=== PATIENT | female | born 1985 | race Caucasian/White ===

== ENCOUNTER → 2017-02-08 | Outpatient (CLI) | payer BC ==
[~2017-02-08] MED LIST: MTR600X PO; PRENTAB26 PO
== END | disposition home or self-care (01) ==
LOC: C.PAPS 16:54
PROVIDERS: ATTEND Physician Assistant
DX: Z01.419 Encounter for gynecological examination (general) (routine) without abnormal findings (principal)

== ENCOUNTER → 2017-07-12 | Outpatient (CLI) | payer OTHER | END | disposition home or self-care (01) | LOC: C.LABSPEC 17:34 | PROVIDERS: ATTEND Obstetrics & Gynecology | DX: Z11.3 Encounter for screening for infections with a predominantly sexual mode of transmission (principal) ==

== ENCOUNTER 2019-03-25 07:51 | Inpatient (IN) ==
[2019-03-25] MEDS ORDERED: OXYTOCIN 30 UNITS/500 ML BAG IV PRN ×2 (08:05→14:42)
[2019-03-25 08:29] LABS: Hematocrit (blood only) 36.1 % (37-47); Hemoglobin 12.3 g/dL (12.0-16.0); Mean Corpuscular Hemoglobin 31.2 pg (25-34); Mean Corpuscular Volume 91.6 fL (80-100); Platelet Count 158 K/uL (130-400); RDW Coefficient of Variation 13.7 % (11.5-14.5); RDW Standard Deviation 45.2 fL (36.4-46.3); Red Blood Count 3.94 M/uL (4.2-5.4); White Blood Count 8.86 K/uL (4.8-10.8)
[2019-03-25 08:40] LABS: Mean Corpuscular Hgb Conc 34.1 g/dL (32-36)
[2019-03-25] MEDS: LACTATED RINGER'S 1,000 ML IV PRN ×2 (08:48→11:30)
--- NOTE | 2019-03-25 09:04 | History & Physical Report ---
Date of Service March 25, 2019 Assessment & Plan (1) Encounter for induction of labor: Patient presents for IOL because of prior precipitous delivery. Plan is to do AROM after epidural has been placed anticipate vaginal Present on Admission?: Yes History of Present Illness Primary Care Provider: NO PCP Patient is a 33 yo white female EDC 04/01/19 who presents at 39 weeks for IOL because of history of precipitous labor & delivery last . She has had some cramping but no real contractions yet. no bloody show. no SROM. GBS (-) Blood Type A(+). Baby has been active. Allergies Allergy/AdvReac Type Severity Reaction Status Date / Time No Known Drug Allergies Allergy Verified 03/24/19 15:14 Home Medications Home Medications Medication Instructions Recorded Confirmed Type PNV cmb#95-ferrous fumarate-FA 1 tab PO DAILY 08/08/18 03/24/19 History [] Saccharomyces boulardii 250 mg PO cap 12/30/18 03/24/19 History capsule aspirin 81 mg tablet,delayed 81 mg PO DAILY 12/30/18 03/24/19 History release ferrous sulfate PO 03/06/19 03/24/19 History collagen MS 03/13/19 03/24/19 History Patient History Medical History with one fetus (Resolved 10/01/13) with prior complicated (Resolved 10/01/13) Rapid first stage of labor (Resolved 10/01/13) History of varicella Hx of preeclampsia, prior , currently No chronic diseases present No significant past surgical history Surgical History Breast enlargement Status post colposcopy Family History Aunt Breast cancer Grandmother (Maternal) Breast cancer Other No significant family history Social History marital status: Single Current Living Situation: Alone current occupational status: employed Feels Safe at Home: Yes Smoking Status: Current every day smoker Review of Systems All systems reviewed & are unremarkable except as noted in HPI & below Physical Exam Constitutional: WD/WN, vitals as above Respiratory: normal respiratory effort, lungs clear to auscultation Cardiovascular: RRR, no murmur, no edema Gastrointestinal (Abdomen): normal bowel sounds, soft, nontender, no hepatosplenomegaly Psychiatric: A+Ox3, euthymic affect Genitourinary: OB Exam Abdomen: + vertex, + estimated weight (7-8 pounds) and + irregular contractions Manual OB Exam: + cervical dilation 4 cm, + cervical effacement 80% and + station -2 OB Exam Monitor Tracing: + external FHT monitor used, + external uterine monitor used, + category I and + normal FHT variability Results & Data Vital Signs (Past 12 Hours) Vital Signs Pulse BP 03/25/19 07:59 89 127/70
[2019-03-25] MEDS ORDERED: fentaNYL citrate 100 MCG/2 ML VIAL ONE (09:07)
[2019-03-25] MEDS ORDERED: fentaNYL 2MCG/ML ROPIV 1.25MG/ML 100 ML BAG EPI ONE (09:08)
[2019-03-25] MEDS ORDERED: BUPIVACAINE 0.25% 30 ML VIAL ONE (09:08)
[2019-03-25] MEDS ORDERED: ePHEDrine sulfate 50 MG/ML AMP ONE (09:08)
--- NOTE | 2019-03-25 09:16 | Anesthesiology Consultation ---
Date of Service March 25, 2019 Assessment & Plan ASA ASA2 Proposed Anesthesia Anesthesia Type: Labor Epidural Risk / Benefits Reviewed With: PT / POA / Parent / Guardian, Accepts Plan and Informed Consent Obtained History Allergies Allergy/AdvReac Type Severity Reaction Status Date / Time No Known Drug Allergies Allergy Verified 03/24/19 15:14 Medications Home Medications Medication Instructions Recorded Confirmed Last Taken PNV cmb#95-ferrous fumarate-FA 1 tab PO DAILY 08/08/18 03/24/19 Unknown [] Saccharomyces boulardii 250 mg PO cap 12/30/18 03/24/19 Unknown capsule aspirin 81 mg tablet,delayed 81 mg PO DAILY 12/30/18 03/24/19 Unknown release ferrous sulfate PO 03/06/19 03/24/19 Unknown collagen MS 03/13/19 03/24/19 Unknown NPO Date Last Intake of Fluids: 03/25/19 Time Last Intake of Fluids: 00:00 Date Last Intake of Solids: 03/25/19 Time Last Intake of Solids: 00:00 Past Medical History Medical History with one fetus (Resolved 10/01/13) with prior complicated (Resolved 10/01/13) Rapid first stage of labor (Resolved 10/01/13) History of varicella Hx of preeclampsia, prior , currently No chronic diseases present No significant past surgical history Exercise / Class Metabolic Activity II 4-5 Yardwork/Stairs/Walk up hill Past Family History Family History Aunt Breast cancer Grandmother (Maternal) Breast cancer Other No significant family history Past Surgical History Surgical History Breast enlargement Status post colposcopy Past Anesthesia History No Hx of Anesthesia Complications and No Family Hx of Anesthesia Complications History of PONV No Hx of PONV and No Hx of Motion Sickness Social History Smoking Status: Current every day smoker Physical Exam Vital Signs Last Vital Signs Pulse 91 H 03/25/19 09:59 BP 112/69 03/25/19 09:56 Pulse Ox 94 03/25/19 09:59 ENMT Mouth: no TMJ abnormality and no dentition abnormality Thyromental Distance: > or= 3.5 Finger Breadths Mallampati Class: II Neck neck extension not limited Respiratory normal respiratory effort; no respiratory distress Auscultation: lungs clear to auscultation bilaterally Cardiovascular Rate/Rhythm: regular rate and regular rhythm Neurologic moves all extremities Psychiatric Orientation: alert and oriented x 3 Testing Laboratory Results 03/25/19 08:12
[2019-03-25] MEDS ORDERED: OXYCODONE/ACETAMINOPHEN 5mg/325mg TAB PO PRN (14:42)
[2019-03-25] MEDS ORDERED: ACETAMINOPHEN 325 MG TAB PO PRN (14:42)
[2019-03-25] MEDS ORDERED: BENZOCAINE 20% AER SPR 82.5 GM CAN EXT PRN (14:42)
[2019-03-25] MEDS ORDERED: HYDROCORTISONE ACETATE 25 MG SUPP PR PRN (14:42)
[2019-03-25] MEDS ORDERED: SUPERCREAM 0.870% 15 GM JAR EXT PRN (14:42)
[2019-03-25] MEDS ORDERED: DIPHTHERIA/TETANUS/PERTUSSIS 0.5 ML SYR/VIAL IM ONE (14:42)
[2019-03-25] MEDS ORDERED: bisacodyL 10 MG SUPP PR PRN (14:42)
--- NOTE | 2019-03-25 15:13 | Anesthesiology Progress Note ---
Date of Service March 25, 2019 Anesthesia Post Procedure Vital Signs Vital Signs: Temp Pulse Resp BP Pulse Ox 03/25/19 15:03 80 113/78 03/25/19 14:55 96 H 108/71 03/25/19 14:34 85 117/62 03/25/19 14:24 103 H 78 L 03/25/19 14:20 95 H 115/60 03/25/19 14:19 106 H 97 03/25/19 14:14 77 97 03/25/19 14:09 80 98 03/25/19 14:06 78 94 03/25/19 14:04 93 H 97 03/25/19 14:03 87 113/63 03/25/19 13:59 86 96 03/25/19 13:54 81 96 03/25/19 13:49 84 117/59 L 97 03/25/19 13:44 84 96 03/25/19 13:39 78 96 03/25/19 13:35 79 93 03/25/19 13:34 96 H 96 03/25/19 13:29 87 96 03/25/19 13:24 79 93 03/25/19 13:23 82 94 03/25/19 13:19 83 114/61 95 03/25/19 13:18 81 94 03/25/19 13:14 78 95 03/25/19 13:10 81 94 03/25/19 13:09 85 95 03/25/19 13:04 78 93 03/25/19 13:03 87 116/60 03/25/19 12:59 77 95 03/25/19 12:54 80 96 03/25/19 12:49 80 121/57 L 96 03/25/19 12:44 86 96 03/25/19 12:40 82 94 03/25/19 12:39 87 96 03/25/19 12:35 74 112/70 03/25/19 12:34 83 96 03/25/19 12:29 80 97 03/25/19 12:24 93 H 97 03/25/19 12:23 80 94 03/25/19 12:20 81 113/69 03/25/19 12:19 79 97 03/25/19 12:14 83 97 03/25/19 12:09 80 94 03/25/19 12:07 81 94 03/25/19 12:04 83 120/65 95 03/25/19 11:59 77 94 03/25/19 11:54 85 95 03/25/19 11:49 78 95 03/25/19 11:48 91 H 105/59 L 03/25/19 11:44 95 H 95 03/25/19 11:43 83 93 03/25/19 11:39 85 97 03/25/19 11:36 86 110/68 03/25/19 11:34 79 95 03/25/19 11:29 84 95 03/25/19 11:24 91 H 94 03/25/19 11:23 93 H 94 03/25/19 11:20 36.7 C 72 18 109/61 03/25/19 11:19 80 94 03/25/19 11:15 87 94 03/25/19 11:14 77 94 03/25/19 11:10 80 94 03/25/19 11:09 81 96 03/25/19 11:05 84 94 03/25/19 11:04 83 115/57 L 94 03/25/19 10:59 95 H 95 03/25/19 10:54 86 94 03/25/19 10:53 84 94 03/25/19 10:50 72 100/64 03/25/19 10:49 80 95 03/25/19 10:44 84 94 03/25/19 10:39 82 95 03/25/19 10:38 80 94 03/25/19 10:34 87 95 03/25/19 10:33 85 113/62 03/25/19 10:31 83 94 03/25/19 10:30 36.8 C 20 03/25/19 10:29 85 96 03/25/19 10:24 84 96 03/25/19 10:22 84 94 03/25/19 10:19 81 96 03/25/19 10:18 86 112/77 03/25/19 10:15 86 94 03/25/19 10:14 85 94 03/25/19 10:09 80 95 03/25/19 10:04 86 93 03/25/19 10:02 93 H 117/58 L 03/25/19 10:01 84 94 03/25/19 09:59 91 H 94 03/25/19 09:56 84 112/69 03/25/19 09:55 87 94 03/25/19 09:54 83 114/65 95 03/25/19 09:52 89 118/74 03/25/19 09:50 91 H 114/69 03/25/19 09:49 85 94 03/25/19 09:48 89 113/64 94 03/25/19 09:46 85 124/58 L 03/25/19 09:45 91 H 109/62 03/25/19 09:44 90 94 03/25/19 09:42 96 H 118/67 03/25/19 09:40 91 H 116/66 03/25/19 09:39 87 98 03/25/19 09:38 86 119/56 L 03/25/19 09:36 98 H 125/76 03/25/19 09:34 85 119/78 96 03/25/19 09:29 94 H 96 03/25/19 09:24 96 H 98 03/25/19 09:19 98 H 99 03/25/19 09:14 104 H 99 03/25/19 07:59 89 127/70 Transfer of Care Handoff Completed per policy Notes Mental Status: alert / awake / arousable and participated in evaluation Patient Amnestic to Procedure: Yes Nausea / Vomiting: adequately controlled Pain: adequately controlled Airway Patency, RR, SpO2: stable & adequate BP & HR: stable & adequate Hydration State: stable & adequate Anesthetic Complications: no major complications apparent and Pt Satisfied with anesthetic care
--- NOTE | 2019-03-25 16:16 | Delivery Summary ---
DATE OF OPERATION: 03/25/2019 The patient is a 33-year-old 4, para 3-0-0-3 white female who presents for elective induction at 39 weeks because of rapid precipitous labor and delivery with her last . Her EDC is 04/01/2019. She presented to labor and delivery dilated 4 cm after she received epidural analgesia that was effective. She had membranes ruptured for clear fluid. She then progressed in spontaneous labor to full dilation. The head was on the perineum, she pushed through 1 contraction for delivery of a viable male infant. There was a shoulder cord that was reduced as the rest of the body was delivered and the was placed on the mother's abdomen for further attention and drying. There was vigorous crying and the was moving all 4 limbs. After 30 seconds, the cord was clamped and cut. The placenta was expressed intact with a 3-vessel cord. The perineum was inspected and noted to be intact. Estimated blood loss was 200 mL. Mother and were doing well after delivery. I attest to the content of the Intraoperative Record and any orders documented therein. Any exception s are noted below.
[2019-03-25] MEDS: DOCUSATE SODIUM 100 MG CAP PO SCH (20:20)
[2019-03-25] MEDS: IBUPROFEN 600 MG TAB PO PRN (20:20)
[2019-03-26] MEDS: IBUPROFEN 600 MG TAB PO PRN ×3 (02:55→13:00)
--- NOTE | 2019-03-26 06:36 | Obstetrical Progress Note ---
Date of Service <Mickey Francois DO - Last Filed: 03/26/19 06:36> March 26, 2019 Assessment & Plan <DO Diego Ledezma Last Filed: 03/26/19 06:36> (1) : -PPD#1 -Vitals reviewed, WNL (Tmax 36.7) - GBS -, Blood Type A+ - Clinically stable. - Feels well today. Eating well, voiding well, ambulating well. - Pain well controlled. - Routine post- care - After discharge will have [address] Lopes. Day #:: 1 Subjective <Mickey Francois DO Last Filed: 03/26/19 06:36> Ambulation: ambulating normally Voiding: no voiding problems Passing Gas:: Yes Diet Tolerance:: regular diet Lochia:: Moderate Feeding Type:: breast feeding Current Pain Level(1-10): 4 Patient is a 33 PPD#1. Patient states that she is feeling well today and that her pain is well controlled. She has no other complaints at this time. Constitutional: no fever and no chills Respiratory: no cough, no dyspnea and no wheezing Cardiovascular: no chest pain, no dyspnea, no palpitations, no edema and no calf pain Breast: + breast pain (with feeding) Gastrointestinal: no abdominal pain, no nausea and no vomiting Genitourinary (female): no dysuria and no difficulty urinating Neurologic: no headache(s) Physical Exam <DO Diego Ledezma Last Filed: 03/26/19 06:36> Constitutional WD/WN, vitals as above Respiratory normal respiratory effort, lungs clear to auscultation Cardiovascular Rate/Rhythm: regular rate and regular rhythm Heart Sounds: normal S1 and normal S2; no click, no gallop, no murmur and no cardiac rub Extremities: + edema (+1); no calf tenderness Gastrointestinal (Abdomen) Inspection/Auscultation: abdomen normal to inspection and normal bowel sounds Percussion/Palpation: abdomen soft; abdomen nontender Genitourinary OB Exam Abdomen: + fundal height Fundus: + firm and + relation to umbilicus (1cm below); not tender and not boggy Results & Data <DO Diego Ledezma Last Filed: 03/26/19 06:36> Vital Signs (Past 12 Hours) Vital Signs Temp Pulse Resp BP Pulse Ox 03/26/19 03:10 36.6 C 79 16 103/70 98 03/25/19 23:25 36.7 C 78 17 99/64 L 98 03/25/19 20:07 36.4 C L 71 20 114/77 98 Laboratory Results Abnormal lab results 03/25/19 Range/Units 08:12 RBC 3.94 L (4.2-5.4) M/uL Hct 36.1 L (37-47) % MPV 12.0 H (7.4-10.4) fL Medications Administered Current Inpatient Medications Acetaminophen (Tylenol) 650 mg PO Q6H PRN PRN Reason: Pain/[place]/Fever Stop: 04/24/19 14:41 Benzocaine (Dermoplast Pain Relieving [place]) 1 appln EXT PRN PRN PRN Reason: Perineal Discomfort Stop: 04/24/19 14:41 Bisacodyl (Dulcolax) 5 mg PO 2000 [facility] Stop: 03/26/19 20:01 Bisacodyl (Dulcolax) 10 mg TN DAILY PRN PRN Reason: No BM on 2nd post- day Stop: 04/24/19 14:41 Cocaine HCl (Supercream 0.870%) 1 gm EXT BID PRN PRN Reason: Hemorrhoidal Inflammation Stop: 04/08/19 14:41 Docusate Sodium (Colace) 100 mg PO DAILY@08,21 [facility] Stop: 04/24/19 20:59 Last Admin: 03/25/19 20:20 Dose: 100 mg Documented by: Hydrocortisone (Anusol Hc) 25 mg TN BID PRN PRN Reason: Hemorrhoidal Inflammation Stop: 04/24/19 14:41 Lactated Ringer's (Lr) 1,000 mls @ 125 mls/hr IV .Q8H PRN; Protocol PRN Reason: L&D Protocol Stop: 03/27/19 08:04 Last Infusion: 03/25/19 17:00 Dose: Infused Documented by: Oxytocin (Pitocin) 30 units in 500 mls @ 333.333 mls/hr IV .Q1H30M PRN; Protocol PRN Reason: Bleeding Control Stop: 04/24/19 08:04 Last Titration: 03/25/19 16:50 Dose: Infused Documented by: Oxytocin (Pitocin) 30 units in 500 mls @ 333.333 mls/hr IV .Q1H30M PRN; Protocol PRN Reason: Bleeding Control Stop: 04/24/19 14:41 Ibuprofen (Motrin) 600 mg PO Q4H PRN PRN Reason: Pain/[place]/Cramping/Fever Stop: 04/24/19 14:41 Last Admin: 03/26/19 02:55 Dose: 600 mg Documented by: Oxycodone/Acetaminophen (Percocet 5mg/325mg) 1 tab PO Q4H PRN PRN Reason: Pain not relieved by... Stop: 04/08/19 14:41 Prenat Multivit/Parts Identification Technician/Iron/Folic Ac ( Vitamin) 1 tab PO DAILY@08 LOTUS Stop: 04/25/19 07:59 <Nataly Hill MD, FACOG - Last Filed: 03/26/19 07:31> Co-Signing Physician Notes Resident Physician Supervision Note: I was present with Dr. Francois during the history and exam. I discussed the case with the resident and agree with the findings and plan as documented in the note. Any exceptions or clarifications are listed here: [None] Documented By: Nataly Hill MD, FACOG Resident Activity Tracking <Mickey Francois DO - Last Filed: 03/26/19 06:36> Resident Involvement: Resident Care Provided Care Provided: OB Delivery
[2019-03-26 07:18] LABS: Hematocrit (blood only) 36.9 % (37-47); Hemoglobin 12.7 g/dL (12.0-16.0); Mean Corpuscular Hemoglobin 31.6 pg (25-34); Mean Corpuscular Hgb Conc 34.4 g/dL (32-36); Mean Corpuscular Volume 91.8 fL (80-100); Mean Platelet Volume 12.4 fL (7.4-10.4); Nucleated RBC # (auto) 0.02 K/uL (0-0); Nucleated RBC % (auto) 0.1 %; Platelet Count 164 K/uL (130-400); RDW Coefficient of Variation 13.8 % (11.5-14.5); RDW Standard Deviation 46.4 fL (36.4-46.3); Red Blood Count 4.02 M/uL (4.2-5.4); White Blood Count 12.84 K/uL (4.8-10.8)
[2019-03-26] MEDS ORDERED: PRENATAL VITAMIN 1 TAB PO SCH (08:00)
[2019-03-26] MEDS: DOCUSATE SODIUM 100 MG CAP PO SCH (08:23)
[2019-03-26] MEDS ORDERED: bisacodyL 5 MG TABEC PO SCH (20:00)
== END 2019-03-26 17:36 | disposition home or self-care (01) | DRG 807 ==
LOC: 4S1 07:51 → 4S2 18:16